=== PATIENT | female | born 1995 | race Caucasian/White ===

== ENCOUNTER 2017-02-23 08:52 | Emergency (ER) | payer SELFPAY ==
[~2017-02-23] VITALS: Ht 154.9 cm; Wt 78.9 kg
[2017-02-23 08:54] VITALS: BP 131/86
== END 2017-02-23 09:16 | disposition home or self-care (01) ==
LOC: ED 08:52
DX: H10.12 Acute atopic conjunctivitis, left eye (principal); I10 Essential (primary) hypertension

== ENCOUNTER 2017-10-26 07:30 | Emergency (ER) | payer MEDICAID ==
[2017-10-26 08:36] LABS: BASOPHIL % 0.2 % (0-2); PLATELET COUNT 353 x10^3mcL (130-400); RED CELL DISTRIBUTION WIDTH 13.5 % (11.5-14.5)
[2017-10-26 08:38] LABS: CALCIUM 8.5 mg/dL (8.5-10.1); CARBON DIOXIDE 29.7 mmol/L (21-32); CHLORIDE SERUM 104 mmol/L (98-107); CREATININE SERUM 0.7 mg/dL (0.6-1.0); GFR1 > 60 mL/min; GLUCOSE SERUM 102 mg/dL (74-106); POTASSIUM SERUM 3.8 mmol/L (3.5-5.1); SODIUM SERUM 139 mmol/L (136-145)
[2017-10-26 08:42] LABS: ALBUMIN 3.5 g/dL (3.4-5.0); ALKALINE PHOSPHATASE 65 U/L (46-116); ALT/SGPT 25 U/L (14-59); AST/SGOT 12 U/L (15-37); BILIRUBIN TOTAL 0.6 mg/dL (0.20-1.00); CHOLESTEROL 156 mg/dL (<200); CHOLESTEROL/HDL RATIO 2.8; HDL CHOLESTEROL 55 mg/dL (40-60); LIPASE 127 IU/L (73-393); TRIGLYCERIDES 78 mg/dL (<150)
[2017-10-26 08:52] LABS: T3 TOTAL 1.07 ng/mL
[2017-10-26 08:54] LABS: FREE T4 0.96 ng/dL (0.76-1.46); FREE THYROXINE INDEX 2.6 ug/dL (1.4-4.5); T4(THYROXINE) 8.2 ug/dL (4.7-13.3)
[2017-10-26 10:52] VITALS: BP 111/74
== END 2017-10-26 10:53 | disposition home or self-care (01) ==
LOC: ED 07:30
PROVIDERS: Specialist
DX: F41.1 Generalized anxiety disorder (principal); I10 Essential (primary) hypertension
CPT/HCPCS: 36415; 83880; 84439

== ENCOUNTER 2017-12-29 13:30 | Emergency (ER) | payer SELFPAY ==
[~2017-12-29] VITALS: Ht 154.9 cm; Wt 73.5 kg
[2017-12-29 14:30] VITALS: Ht 154.9 cm; Wt 73.5 kg
[2017-12-29 17:02] LABS: UA SPECIFIC GRAVITY 1.025 (1.005-1.035); microscopic required? YES; urine erythrocyte NEGATIVE (NEGATIVE)
[2017-12-29 17:11] LABS: AMPHETAMINE QUAL UR NONE DETECTED (NEG <=1000)
[2017-12-29 17:38] LABS: BASOPHIL % 0.5 % (0-2); PLATELET COUNT 337 x10^3mcL (130-400); RED CELL DISTRIBUTION WIDTH 12.7 % (11.5-14.5)
[2017-12-29 17:47] LABS: CALCIUM 8.4 mg/dL (8.5-10.1); CARBON DIOXIDE 25.5 mmol/L (21-32); CHLORIDE SERUM 102 mmol/L (98-107); CREATININE SERUM 0.6 mg/dL (0.6-1.0); GFR1 > 60 mL/min; GLUCOSE SERUM 107 mg/dL (74-106); POTASSIUM SERUM 3.2 mmol/L (3.5-5.1); SODIUM SERUM 137 mmol/L (136-145)
[2017-12-29 17:51] LABS: ALKALINE PHOSPHATASE 50 U/L (46-116); ALT/SGPT 18 U/L (14-59); AST/SGOT 9 U/L (15-37); LIPASE 94 IU/L (73-393)
[2017-12-29 17:53] LABS: ALBUMIN 3.2 g/dL (3.4-5.0)
[2017-12-29 18:29] VITALS: BP 113/63
== END 2017-12-29 18:29 | disposition home or self-care (01) ==
LOC: ED 13:30
PROVIDERS: Emergency Medicine
DX: O21.0 Mild hyperemesis gravidarum (principal); I10 Essential (primary) hypertension; F12.90 Cannabis use, unspecified, uncomplicated; Z3A.08 8 weeks gestation of pregnancy
CPT/HCPCS: 83880; J1200; J3490; J7030